=== PATIENT | male | born 1985 | race Caucasian/White ===

== ENCOUNTER 2016-10-29 10:54 | Inpatient (IN) | payer BC ==
[2016-10-29 12:06] VITALS: BMI 34.4
--- NOTE | 2016-10-29 14:16 | HP ---
CIWA Score - CIWA Score Nausea/Vomitin-Mild Nausea/No Vomiting Muscle Tremors: 4-Moderate,w/Arms Extend Anxiety: 3 Agitation: 4-Moderately Restless Paroxysmal Sweats: 3 Orientation: 0-Oriented Tacttile Disturbances: 0-None Auditory Disturbances: 0-None Visual Disturbances: 0-None Headache: 1-Very Mild CIWA-Ar Total Score: 16 Admission ROS BHS - HPI Chief Complaint: I am here because I need help with my alcohol addiction. Allergies/Adverse Reactions: Allergies Allergy/AdvReac Type Severity Reaction Status Date / Time No Known Allergies Allergy Verified 10/29/16 12:30 History of Present Illness: pt is a 31yr old male with a history of alcohol and cocaine dependence seeking detox for treatment. Exam Limitations: No Limitations - Ebola screening Have you traveled outside of the country in the last 21 days: No Have you had contact with anyone from an Ebola affected area: No Have you been sick,other than usual withdrawal symptoms: No Do you have a fever: No - Review of Systems Constitutional: Chills, Diaphoresis EENT: reports: No Symptoms Reported Respiratory: reports: No Symptoms reported Cardiac: reports: Irregular Heart Rate GI: reports: No Symptoms Reported : reports: No Symptoms Reported Musculoskeletal: reports: No Symptoms Reported Integumentary: reports: Flushing, Sweating Endocrine: reports: Excessive Sweating, Flushing, Intolerance to Cold, Intolerance to Heat Hematology: reports: No Symptoms Reported Psychiatric: reports: Judgement Intact, Mood/Affect Appropiate, Orientated x3, Agitated, Anxious Other Systems: Reviewed and Negative Patient History - Patient Medical History Hx Anemia: No Hx Asthma: No Hx Chronic Obstructive Pulmonary Disease (COPD): No Hx Cancer: No Hx Cardiac Disorders: No Hx Congestive Heart Failure: No Hx Hypertension: Yes (NOT ON MEDS.) Hx Hypercholesterolemia: No Hx Pacemaker: No HX Cerebrovascular Accident: No Hx Seizures: No Hx Dementia: No Hx Diabetes: No Hx Gastrointestinal Disorders: No Hx Liver Disease: No Hx Genitourinary Disorders: No Hx Sexually Transmitted Disorders: No Hx Renal Disease (ESRD): No Hx Thyroid Disease: No Hx Human Immunodeficiency Virus (HIV): No Hx Hepatitis C: No Hx Depression: Yes Hx Suicide Attempt: No (denies) Hx Bipolar Disorder: No Hx Schizophrenia: No - Patient Surgical History Past Surgical History: No - PPD History Previous Implant?: Yes Documented Results: Negative w/o proof Implanted On Prior [facility] Admission?: Yes Date: 04/02/15 PPD to be Administered?: Yes - Reproductive History Patient is a Female of Child Bearing Age (11 -55 yrs old): No - Smoking Cessation Smoking history: Current every day smoker Have you smoked in the past 12 months: Yes Aproximately how many cigarettes per day: 20 Hx Chewing Tobacco Use: No Initiated information on smoking cessation: Yes 'Breaking Loose' booklet given: 10/29/16 - Substance & Tx. History Hx Alcohol Use: Yes Hx Substance Use: Yes Substance Use Type: Alcohol, Cocaine Hx Substance Use Treatment: Yes - Substances Abused Alcohol Route: Oral Frequency: Daily Amount used: 1 LITER VODKA Age of first use: 15 Date of Last Use: 10/28/16 Cocaine Route: Inhalation Frequency: Daily Amount used: 1-3 GRAMS Age of first use: 23 Date of Last Use: 10/26/16 Family Disease History - Family Disease History Family History: Denies Admission Physical Exam S - Vital Signs Vital Signs: Vital Signs - 24 hr 10/29/16 12:04 Temperature 98.0 F Pulse Rate 94 H Respiratory 18 Rate Blood Pressure 158/106 - Physical General Appearance: Yes: Appropriately Dressed, Moderate Distress, Tremorous, Irritable, Sweating HEENTM: Yes: Hearing grossly Normal, Normal Voice, Nasal Congestion, Rhinorrhea Respiratory: Yes: Lungs Clear, Normal Breath Sounds, No Respiratory Distress Neck: Yes: No masses,lesions,Nodules Breast: Yes: Within Normal Limits Cardiology: Yes: Regular Rhythm, Regular Rate, S1, S2 Abdominal: Yes: Normal Bowel Sounds, Non Tender, Soft Genitourinary: Yes: Within Normal Limits Back: Yes: Normal Inspection Musculoskeletal: Yes: full range of Motion Extremities: Yes: Normal Capillary Refill, Normal Inspection, Tremors Neurological: Yes: Fully Oriented, Alert, Normal Response Integumentary: Yes: Normal Color, Dry, Diaphoresis Lymphatic: Yes: Within Normal Limits - Diagnostic (1) Alcohol dependence with uncomplicated withdrawal Current Visit: Yes Status: Chronic (2) Anxiety and depression Current Visit: Yes Status: Chronic (3) Cocaine dependence Current Visit: Yes Status: Chronic Qualifiers: Substance use status: uncomplicated Qualified Code(s): F14.20 - Cocaine dependence, uncomplicated (4) HTN (hypertension) Current Visit: Yes Status: Chronic Qualifiers: Hypertension type: essential hypertension Qualified Code(s): I10 - Essential (primary) hypertension (5) Nicotine dependence Current Visit: Yes Status: Chronic Qualifiers: Nicotine product type: cigarettes Substance use status: uncomplicated Qualified Code(s): F17.210 - Nicotine dependence, cigarettes, uncomplicated Cleared for Admission BHS - Detox or Rehab [facility] Level of Care: Medically Managed Detox Regimen/Protocol: Librium BHS Breath Alcohol Content Breath Alcohol Content: 0 Urine Drug Screen - Results Drug Screen Negative: No Urine Drug Screen Results: MDMA-Ecstasy, OXY-Oxycodone
[2016-10-29] MEDS ORDERED: ACETAMINOPHEN 325 MG TABLET (FP) PO PRN (14:20)
[2016-10-29] MEDS ORDERED: IBUPROFEN 400 MG TABLET (FP) PO PRN (14:20)
[2016-10-29] MEDS ORDERED: MAGNESIUM HYDROX 2400MG/30ML ORAL SUSPENSION 30 ML CUP PO PRN (14:20)
[2016-10-29] MEDS ORDERED: MAG HYDROX/AL HYDROX/SIMETH 30 ML UNIT-DOSE CUP PO PRN (14:20)
[2016-10-29] MEDS ORDERED: chlordiazePOXIDE HCL 25 MG CAPSULE PO PRN (14:20)
[2016-10-29] MEDS ORDERED: LOPERAMIDE HCL 2 MG CAPSULE PO PRN (14:20)
[2016-10-29] MEDS ORDERED: hydrOXYzine PAMOATE 50 MG CAPSULE (FP) PO PRN (14:20)
[2016-10-29] MEDS ORDERED: chlordiazePOXIDE HCL 25 MG CAPSULE PO ONE (14:20)
[2016-10-29] MEDS ORDERED: P-EPHED 60MG/TRIPROLIDI 2.5MG TABLET PO PRN (14:20)
[2016-10-29] MEDS ORDERED: guaiFENesin/D-METHORPHAN HB 10 ML UNIT-DOSE CUPS PO PRN (14:20)
[2016-10-29] MEDS ORDERED: MENTHOL/PHENOL 1 EACH UD MM PRN (14:20)
[2016-10-29] MEDS ORDERED: MAGNESIUM CITRATE 300 ML BOTTLE PO PRN (14:20)
[2016-10-29] MEDS ORDERED: cloNIDine HCL 0.1 MG TABLET PO ONE (14:23)
[2016-10-29 14:56] LABS: HIV 1 & 2 AB NEGATIVE; HIV 1 AGp24 NEGATIVE
--- NOTE | 2016-10-29 16:11 | EKG ---
Test Reason : Blood Pressure : / mmHG Vent. Rate : 078 BPM Atrial Rate : 078 BPM P-R Int : 138 ms QRS Dur : 108 ms QT Int : 390 ms P-R-T Axes : 056 041 031 degrees QTc Int : 444 ms NORMAL SINUS RHYTHM NORMAL ECG NO PREVIOUS ECGS AVAILABLE Confirmed by CLARICE SIEGEL MD ([id number]) on 10/29/2016 4:11:01 PM Referred By: Confirmed By:CLARICE SIEGEL MD
[2016-10-29] MEDS: chlordiazePOXIDE HCL 25 MG CAPSULE PO SCH ×2 (17:08→22:21)
[2016-10-29 19:11] LABS: URINE APPEARANCE CLEAR; URINE BILIRUBIN NEGATIVE (NEGATIVE); URINE BLOOD NEGATIVE (NEGATIVE); URINE COLOR YELLOW; URINE GLUCOSE (UA) NEGATIVE (NEGATIVE); URINE KETONE NEGATIVE (NEGATIVE); URINE LEUK ESTERASE NEGATIVE (NEGATIVE); URINE NITRITE NEGATIVE (NEGATIVE); URINE PROTEIN 1+ (NEGATIVE); URINE UROBILINOGEN NEGATIVE E.U./dl (0.2-1.0)
[2016-10-29 19:20] LABS: URINE RBC 1 /hpf (0-3); URINE WBC 3 /hpf (3-5)
[2016-10-29 19:21] LABS: URINE HYALINE CAST 7 /lpf; URINE MUCUS MANY
[2016-10-29] MEDS: diphenhydrAMINE HCL 50 MG CAPSULE PO PRN (22:21)
[2016-10-29] MEDS: THIAMINE HCL 100 MG TABLET (FP) PO SCH (22:21)
[2016-10-30] MEDS: chlordiazePOXIDE HCL 25 MG CAPSULE PO SCH ×4 (06:19→22:49)
--- NOTE | 2016-10-30 09:53 | CONSULT ---
[facility] Psychiatric Consult - Data Date of interview: 10/30/16 Admission source: [facility] Identifying data: This is 31 years old male with no psychiatric hospitalizatiojn history intoxicated with : Alcohol, Cocaine and Nicotine Substance Abuse History: - Smoking Cessation. Smoking history: Current every day smoker. Have you smoked in the past 12 months: Yes. Aproximately how many cigarettes per day: 20. Hx Chewing Tobacco Use: No. Initiated information on smoking cessation: Yes. 'Breaking Loose' booklet given: 10/29/16. - Substance & Tx. History. Hx Alcohol Use: Yes. Hx Substance Use: Yes. Substance Use Type : Alcohol, Cocaine. Hx Substance Use Treatment: Yes. - Substances Abused. Alcohol. Route: Oral. Frequency: Daily. Amount used: 1 LITER VODKA. Age of first use: 15. Date of Last Use: 10/28/16. Cocaine. Route: Inhalation. Frequency: Daily. Amount used: 1-3 GRAMS. Age of first use: 23. Date of Last Use: 10/26/16 Medical History: HTN, Obesity Psychiatric History: Patient reprots no psychiatric history, as per computer there is a history of anxiety abd depression, denies histrorey of suicidal attempts Physical/Sexual Abuse/Trauma History: Denies Additional Comment: Observation. Detox Unit Care Protocol Mental Status Exam - Mental Status Exam Alert and Oriented to: Person Cognitive Function: Fair Patient Appearance: Unkempt Mood: Sad Affect: Flat Patient Behavior: Sedated Speech Pattern: Delayed Voice Loudness: Mildly Soft/Quiet Thought Process: Circumstantial Thought Disorder: Being Controlled Hallucinations: Denies Suicidal Ideation: Denies Homicidal Ideation: Denies Insight/Judgement: Fair Sleep: Difficulty falling asleep Appetite: Weight gain Muscle strength/Tone: Mild Hypotonicity Gait/Station: Shuffling Additional Comments: Observation. Detox Unit Care Protocol Psychiatric Findings - Problem List ([place] 1, 2,3) (1) Alcohol dependence with uncomplicated withdrawal Current Visit: Yes Status: Chronic (2) Anxiety and depression Current Visit: Yes Status: Chronic (3) Cocaine dependence Current Visit: Yes Status: Chronic Qualifiers: Substance use status: uncomplicated Qualified Code(s): F14.20 - Cocaine dependence, uncomplicated (4) Nicotine dependence Current Visit: Yes Status: Chronic Qualifiers: Nicotine product type: cigarettes Substance use status: uncomplicated Qualified Code(s): F17.210 - Nicotine dependence, cigarettes, uncomplicated (5) Drug-induced mood disorder Current Visit: Yes Status: Acute - Initial Treatment Plan Initial Treatment Plan: Observation. Detox Unit Care Protocol
[2016-10-30 10:07] LABS: MCH 28.6 pg (25.7-33.7); MCHC 33.9 g/dl (32.0-35.9); MEAN CELL VOLUME 84.4 fl (80-96); MEAN PLT VOLUME 9.1 fl (7.5-11.1); PLATELET COUNT 267 K/MM3 (134-434); RDW 12.9 % (11.9-15.9)
[2016-10-30 10:24] LABS: ALBUMIN 4.7 g/dl (3.4-5.0); ANION GAP 11 (8-16); BILIRUBIN,TOTAL 0.7 mg/dL (0.2-1.0); CO2 25 mmol/L (21-32); GLUCOSE,RANDOM 105 mg/dL (74-106); SGOT/AST 23 U/L (15-37)
[2016-10-30 10:25] LABS: ALK PHOS 81 U/L (45-117); CALCIUM 9.6 mg/dL (8.5-10.1); CREATININE 1.1 mg/dL (0.7-1.3); SGPT/ALT 45 U/L (12-78); TOT PROT 8.1 g/dl (6.4-8.2)
--- NOTE | 2016-10-30 11:06 | PN ---
S CIWA - CIWA Score Nausea/Vomitin-No Nausea/No Vomiting Muscle Tremors: 4-Moderate,w/Arms Extend Anxiety: 4-Mod. Anxious/Guarded Agitation: 3 Paroxysmal Sweats: 3 Orientation: 0-Oriented Tacttile Disturbances: 0-None Auditory Disturbances: 0-None Visual Disturbances: 0-None Headache: 0-None Present CIWA-Ar Total Score: 14 BHS Progress Note (SOAP) Subjective: Sweating,tremors,anxiety,interrupted sleep,restless Objective: 10/30/16 11:05 Vital Signs - 8 hr 10/30/16 10/30/16 10/30/16 03:49 06:44 09:52 Temperature 96.1 F L 96.3 F L Pulse Rate 73 81 Respiratory 18 18 20 Rate Blood Pressure 116/78 133/89 Laboratory Tests 10/29/16 10/29/16 10/30/16 12:00 13:00 06:10 WBC 11.0 H RBC 5.73 H Hgb 16.4 Hct 48.3 MCV 84.4 MCHC 33.9 RDW 12.9 Plt Count 267 MPV 9.1 Sodium Potassium Chloride Carbon Dioxide Anion Gap BUN Creatinine Creat Clearance w eGFR Random Glucose Calcium Total Bilirubin AST ALT Alkaline Phosphatase Total Protein Albumin Urine Color Yellow Urine Appearance Clear Urine pH 7.0 Ur Specific [place] 1.030 Urine Protein 1+ H Urine Glucose (UA) Negative Urine Ketones Negative Urine Blood Negative Urine Nitrite Negative Urine Bilirubin Negative Urine Urobilinogen Negative Ur Leukocyte Esterase Negative Urine RBC 1 Urine WBC 3 Hyaline Casts 7 Urine Mucus Many HIV 1&2 Antibody Screen Negative HIV P24 Antigen Negative 10/30/16 06:10 WBC RBC Hgb Hct MCV MCHC RDW Plt Count MPV Sodium 140 Potassium 3.6 Chloride 104 Carbon Dioxide 25 Anion Gap 11 BUN 13 Creatinine 1.1 D Creat Clearance w eGFR > 60 Random Glucose 105 Calcium 9.6 Total Bilirubin 0.7 D AST 23 D ALT 45 Alkaline Phosphatase 81 D Total Protein 8.1 D Albumin 4.7 D Urine Color Urine Appearance Urine pH Ur Specific [place] Urine Protein Urine Glucose (UA) Urine Ketones Urine Blood Urine Nitrite Urine Bilirubin Urine Urobilinogen Ur Leukocyte Esterase Urine RBC Urine WBC Hyaline Casts Urine Mucus HIV 1&2 Antibody Screen HIV P24 Antigen labs noted Assessment: 10/30/16 11:05 Withdrawal sx. Plan: Continue detox
[2016-10-30] MEDS: PRENATAL VITAMINS W/ FOLIC ACID TABLET (FP) PO SCH (11:13)
[2016-10-30] MEDS: NICOTINE 21 MG/24 HOURS TOPICAL PATCH TD SCH (11:15)
[2016-10-30] MEDS: NICOTINE POLACRILEX 4 MG GUM BUC PRN (11:16)
[2016-10-30] MEDS: THIAMINE HCL 100 MG TABLET (FP) PO SCH (22:49)
[2016-10-30] MEDS: diphenhydrAMINE HCL 50 MG CAPSULE PO PRN (22:49)
[2016-10-31] MEDS: chlordiazePOXIDE HCL 25 MG CAPSULE PO SCH ×2 (05:54→11:18)
[2016-10-31] MEDS: NICOTINE 21 MG/24 HOURS TOPICAL PATCH TD SCH (11:18)
[2016-10-31] MEDS: PRENATAL VITAMINS W/ FOLIC ACID TABLET (FP) PO SCH (11:18)
[2016-10-31] MEDS: NICOTINE POLACRILEX 4 MG GUM BUC PRN (11:19)
--- NOTE | 2016-10-31 11:34 | PN ---
[facility] CIWA - CIWA Score Nausea/Vomitin-No Nausea/No Vomiting Muscle Tremors: 3 Anxiety: 3 Agitation: 4-Moderately Restless Paroxysmal Sweats: 3 Orientation: 0-Oriented Tacttile Disturbances: 0-None Auditory Disturbances: 0-None Visual Disturbances: 0-None Headache: 0-None Present CIWA-Ar Total Score: 13 BHS Progress Note (SOAP) Subjective: Sweating,interrupted sleep,anxiety,tremors Objective: 10/31/16 11:33 Vital Signs - 8 hr 10/31/16 10/31/16 06:36 10:43 Temperature 96.5 F L 96.2 F L Pulse Rate 76 84 Respiratory 18 18 Rate Blood Pressure 121/79 133/84 Laboratory Tests 10/29/16 10/29/16 10/29/16 12:00 13:00 13:00 WBC RBC Hgb Hct MCV MCHC RDW Plt Count MPV Sodium Potassium Chloride Carbon Dioxide Anion Gap BUN Creatinine Creat Clearance w eGFR Random Glucose Calcium Total Bilirubin AST ALT Alkaline Phosphatase Total Protein Albumin Urine Color Yellow Urine Appearance Clear Urine pH 7.0 Ur Specific [place] 1.030 Urine Protein 1+ H Urine Glucose (UA) Negative Urine Ketones Negative Urine Blood Negative Urine Nitrite Negative Urine Bilirubin Negative Urine Urobilinogen Negative Ur Leukocyte Esterase Negative Urine RBC 1 Urine WBC 3 Hyaline Casts 7 Urine Mucus Many RPR Titer Hepatitis C Antibody <0.1 HIV 1&2 Antibody Screen Negative HIV P24 Antigen Negative 10/30/16 10/30/16 10/30/16 06:10 06:10 06:10 WBC 11.0 H RBC 5.73 H Hgb 16.4 Hct 48.3 MCV 84.4 MCHC 33.9 RDW 12.9 Plt Count 267 MPV 9.1 Sodium 140 Potassium 3.6 Chloride 104 Carbon Dioxide 25 Anion Gap 11 BUN 13 Creatinine 1.1 D Creat Clearance w eGFR > 60 Random Glucose 105 Calcium 9.6 Total Bilirubin 0.7 D AST 23 D ALT 45 Alkaline Phosphatase 81 D Total Protein 8.1 D Albumin 4.7 D Urine Color Urine Appearance Urine pH Ur Specific [place] Urine Protein Urine Glucose (UA) Urine Ketones Urine Blood Urine Nitrite Urine Bilirubin Urine Urobilinogen Ur Leukocyte Esterase Urine RBC Urine WBC Hyaline Casts Urine Mucus RPR Titer Nonreactive Hepatitis C Antibody HIV 1&2 Antibody Screen HIV P24 Antigen labs noted Assessment: 02/24/17 11:33 Withdrawal sx. Plan: Continue detox
[2016-10-31] MEDS: chlordiazePOXIDE 5 MG CAPSULE PO SCH ×2 (17:08→22:38)
[2016-10-31] MEDS: THIAMINE HCL 100 MG TABLET (FP) PO SCH (22:38)
[2016-11-01] MEDS: chlordiazePOXIDE 5 MG CAPSULE PO SCH ×2 (06:19→10:54)
[2016-11-01] MEDS: NICOTINE 21 MG/24 HOURS TOPICAL PATCH TD SCH (10:55)
[2016-11-01] MEDS: PRENATAL VITAMINS W/ FOLIC ACID TABLET (FP) PO SCH (10:55)
[2016-11-01] MEDS: NICOTINE POLACRILEX 4 MG GUM BUC PRN ×3 (10:57→22:42)
--- NOTE | 2016-11-01 12:18 | PN ---
BHS Progress Note (SOAP) Subjective: Anxiety, mild tremors, interrupted sleep, restlessness Objective: 11/01/16 12:17 Vital Signs Temperature 96.7 F L 11/01/16 09:56 Pulse Rate 84 11/01/16 09:56 Respiratory Rate 18 11/01/16 09:56 Blood Pressure 145/90 11/01/16 09:56 O2 Sat by Pulse Oximetry (%) Laboratory Last Values WBC 11.0 K/mm3 (4.0-10.0) H 10/30/16 06:10 RBC 5.73 M/mm3 (4.00-5.60) H 10/30/16 06:10 Hgb 16.4 GM/dL (11.7-16.9) 10/30/16 06:10 Hct 48.3 % (35.4-49) 10/30/16 06:10 MCV 84.4 fl (80-96) 10/30/16 06:10 MCHC 33.9 g/dl (32.0-35.9) 10/30/16 06:10 RDW 12.9 % (11.9-15.9) 10/30/16 06:10 Plt Count 267 K/MM3 (134-434) 10/30/16 06:10 MPV 9.1 fl (7.5-11.1) 10/30/16 06:10 Sodium 140 mmol/L (136-145) 10/30/16 06:10 Potassium 3.6 mmol/L (3.5-5.1) 10/30/16 06:10 Chloride 104 mmol/L (98-107) 10/30/16 06:10 Carbon Dioxide 25 mmol/L (21-32) 10/30/16 06:10 Anion Gap 11 (8-16) 10/30/16 06:10 BUN 13 mg/dL (7-18) 10/30/16 06:10 Creatinine 1.1 mg/dL (0.7-1.3) D 10/30/16 06:10 Creat Clearance w eGFR > 60 (>60) 10/30/16 06:10 Random Glucose 105 mg/dL (74-106) 10/30/16 06:10 Calcium 9.6 mg/dL (8.5-10.1) 10/30/16 06:10 Total Bilirubin 0.7 mg/dL (0.2-1.0) D 10/30/16 06:10 AST 23 U/L (15-37) D 10/30/16 06:10 ALT 45 U/L (12-78) 10/30/16 06:10 Alkaline Phosphatase 81 U/L (45-117) D 10/30/16 06:10 Total Protein 8.1 g/dl (6.4-8.2) D 10/30/16 06:10 Albumin 4.7 g/dl (3.4-5.0) D 10/30/16 06:10 Urine Color Yellow 10/29/16 13:00 Urine Appearance Clear 10/29/16 13:00 Urine pH 7.0 (5.0-8.0) 10/29/16 13:00 Ur Specific [place] 1.030 (1.001-1.035) 10/29/16 13:00 Urine Protein 1+ (NEGATIVE) H 10/29/16 13:00 Urine Glucose (UA) Negative (NEGATIVE) 10/29/16 13:00 Urine Ketones Negative (NEGATIVE) 10/29/16 13:00 Urine Blood Negative (NEGATIVE) 10/29/16 13:00 Urine Nitrite Negative (NEGATIVE) 10/29/16 13:00 Urine Bilirubin Negative (NEGATIVE) 10/29/16 13:00 Urine Urobilinogen Negative E.U./dl (0.2-1.0) 10/29/16 13:00 Ur Leukocyte Esterase Negative (NEGATIVE) 10/29/16 13:00 Urine RBC 1 /hpf (0-3) 10/29/16 13:00 Urine WBC 3 /hpf (3-5) 10/29/16 13:00 Hyaline Casts 7 /lpf 10/29/16 13:00 Urine Mucus Many 10/29/16 13:00 RPR Titer Nonreactive (NONREACTIVE) 10/30/16 06:10 Hepatitis C Antibody <0.1 s/co ratio (0.0-0.9) 10/29/16 13:00 HIV 1&2 Antibody Screen Negative 10/29/16 12:00 HIV P24 Antigen Negative 10/29/16 12:00 Assessment: Withdrawal Symptoms Plan: Continue Detox
[2016-11-01] MEDS: chlordiazePOXIDE HCL 10 MG CAPSULE PO SCH ×2 (17:13→22:37)
[2016-11-01] MEDS: THIAMINE HCL 100 MG TABLET (FP) PO SCH (22:37)
[2016-11-01] MEDS: diphenhydrAMINE HCL 50 MG CAPSULE PO PRN (22:37)
[2016-11-02] MEDS: chlordiazePOXIDE HCL 10 MG CAPSULE PO SCH (06:12)
[2016-11-02 07:05] VITALS: BP 130/96; PULSE 77; TEMP 95.3
[2016-11-02] MEDS: PRENATAL VITAMINS W/ FOLIC ACID TABLET (FP) PO SCH (09:07)
[2016-11-02] MEDS: NICOTINE 21 MG/24 HOURS TOPICAL PATCH TD SCH (09:07)
[2016-11-02] MEDS: NICOTINE POLACRILEX 4 MG GUM BUC PRN (09:08)
--- NOTE | 2016-11-02 12:41 | DS ---
[facility] Detox Discharge Summary Admission Date: 10/29/16 Discharge Date: 11/02/16 - History Present History: Alcohol Dependence, Cocaine Dependence Pertinent Past History: HTN - Physical Exam Results Vital Signs: Vital Signs Temperature 95.3 F L 11/02/16 07:04 Pulse Rate 77 11/02/16 07:04 Respiratory Rate 18 11/02/16 07:04 Blood Pressure 130/96 11/02/16 07:04 O2 Sat by Pulse Oximetry (%) Pertinent Admission Physical Exam Findings: Withdrawal symptoms Laboratory Tests 10/29/16 10/29/16 10/29/16 12:00 13:00 13:00 WBC RBC Hgb Hct MCV MCHC RDW Plt Count MPV Sodium Potassium Chloride Carbon Dioxide Anion Gap BUN Creatinine Creat Clearance w eGFR Random Glucose Calcium Total Bilirubin AST ALT Alkaline Phosphatase Total Protein Albumin Urine Color Yellow Urine Appearance Clear Urine pH 7.0 Ur Specific [place] 1.030 Urine Protein 1+ H Urine Glucose (UA) Negative Urine Ketones Negative Urine Blood Negative Urine Nitrite Negative Urine Bilirubin Negative Urine Urobilinogen Negative Ur Leukocyte Esterase Negative Urine RBC 1 Urine WBC 3 Hyaline Casts 7 Urine Mucus Many RPR Titer Hepatitis C Antibody <0.1 HIV 1&2 Antibody Screen Negative HIV P24 Antigen Negative 10/30/16 10/30/16 10/30/16 06:10 06:10 06:10 WBC 11.0 H RBC 5.73 H Hgb 16.4 Hct 48.3 MCV 84.4 MCHC 33.9 RDW 12.9 Plt Count 267 MPV 9.1 Sodium 140 Potassium 3.6 Chloride 104 Carbon Dioxide 25 Anion Gap 11 BUN 13 Creatinine 1.1 D Creat Clearance w eGFR > 60 Random Glucose 105 Calcium 9.6 Total Bilirubin 0.7 D AST 23 D ALT 45 Alkaline Phosphatase 81 D Total Protein 8.1 D Albumin 4.7 D Urine Color Urine Appearance Urine pH Ur Specific [place] Urine Protein Urine Glucose (UA) Urine Ketones Urine Blood Urine Nitrite Urine Bilirubin Urine Urobilinogen Ur Leukocyte Esterase Urine RBC Urine WBC Hyaline Casts Urine Mucus RPR Titer Nonreactive Hepatitis C Antibody HIV 1&2 Antibody Screen HIV P24 Antigen Labs noted - Treatment Hospital Course: Detox Protocol Followed, Detoxed Safely, Responded well, Discharged Condition Good - Medication Discharge Medications: Ambulatory Orders NK [No Known Home Medication] 10/29/16 - Diagnosis (1) Alcohol dependence with uncomplicated withdrawal Status: Acute (2) Anxiety and depression Status: Chronic (3) Cocaine dependence Status: Chronic Qualifiers: Substance use status: uncomplicated Qualified Code(s): F14.20 - Cocaine dependence, uncomplicated (4) HTN (hypertension) Status: Chronic Qualifiers: Hypertension type: essential hypertension Qualified Code(s): I10 - Essential (primary) hypertension (5) Nicotine dependence Status: Chronic Qualifiers: Nicotine product type: cigarettes Substance use status: uncomplicated Qualified Code(s): F17.210 - Nicotine dependence, cigarettes, uncomplicated - AMA Did Patient Leave Against Medical Advice: No
== END 2016-11-02 09:15 | disposition home or self-care (01) | DRG 774 ==
LOC: YASAS 10:54 → Y3N 13:19
PROVIDERS: ADMIT Internal Medicine; ATTEND Internal Medicine
PROC: HZ2ZZZZ Detoxification Services for Substance Abuse Treatment (ICD-10-PCS; principal; 2016-11-02)
DX: F10.230 Alcohol dependence with withdrawal, uncomplicated (principal); F14.20 Cocaine dependence, uncomplicated; F17.210 Nicotine dependence, cigarettes, uncomplicated; F19.24 Other psychoactive substance dependence with psychoactive substance-induced mood disorder; F41.8 Other specified anxiety disorders; I10 Essential (primary) hypertension
CPT/HCPCS: 36415; 80053; 81003; 81015; 85027; 86593; 87389; 93005; 93010